=== PATIENT | female | born 1975 | race Caucasian/White ===

== ENCOUNTER 2017-03-23 06:39 | Emergency (ER) | payer SELFPAY ==
[~2017-03-23] VITALS: Ht 162.6 cm; Wt 118.2 kg
[2017-03-23 06:42] VITALS: TEMP 98.5
[2017-03-23] MEDS ORDERED: DEPAKOTE ER 50500 MG PO (06:45)
[2017-03-23] MEDS ORDERED: LITHIUM 30300 MG/CAP PO (06:45)
[2017-03-23] MEDS ORDERED: GLUCOPHAGE1000 MG PO (06:45)
[2017-03-23 07:43] VITALS: BP 138/89; PULSE 72
== END 2017-03-23 07:43 | disposition home or self-care (01) ==
LOC: COL.ER 06:39
DX: S93.402A Sprain of unspecified ligament of left ankle, initial encounter (principal); X50.1XXA Overexertion from prolonged static or awkward postures, initial encounter; E11.9 Type 2 diabetes mellitus without complications; Z79.84 Long term (current) use of oral hypoglycemic drugs

== ENCOUNTER 2017-04-15 15:15 | Emergency (ER) | payer OTHER ==
[~2017-04-15] VITALS: Ht 162.6 cm; Wt 121.4 kg
[~2017-04-15 15:15] MED LIST: DEPAKOTE ER 50500 MG PO; GLUCOPHAGE1000 MG PO; LITHIUM 30300 MG/CAP PO
[2017-04-15 15:21] VITALS: BP 132/80; TEMP 99.9
[2017-04-15] MEDS ORDERED: DEPAKOTE ER 50500 MG PO (15:59)
[2017-04-15 16:26] VITALS: PULSE 86
== END 2017-04-15 16:27 | disposition home or self-care (01) ==
LOC: COL.ER 15:15
DX: R45.1 Restlessness and agitation (principal); F31.9 Bipolar disorder, unspecified; Z76.0 Encounter for issue of repeat prescription

== ENCOUNTER 2017-04-20 03:08 | Emergency (ER) | payer SELFPAY ==
[~2017-04-20] VITALS: Ht 162.6 cm; Wt 121.4 kg
[2017-04-20 03:12] VITALS: TEMP 97.5
[2017-04-20 03:31] VITALS: BP 132/93
[2017-04-20 04:00] VITALS: PULSE 80
== END 2017-04-20 04:00 | disposition home or self-care (01) ==
LOC: COL.ER 03:08
DX: F44.9 Dissociative and conversion disorder, unspecified (principal); F31.9 Bipolar disorder, unspecified; F98.5 Adult onset fluency disorder

== ENCOUNTER 2017-04-20 08:35 | Emergency (ER) | payer SELFPAY ==
[~2017-04-20] VITALS: Ht 162.6 cm; Wt 121.4 kg
[2017-04-20 08:39] VITALS: BP 139/89; PULSE 78
== END 2017-04-20 08:50 | disposition left against medical advice (07) ==
LOC: COL.ER 08:35
DX: M25.572 Pain in left ankle and joints of left foot (principal); Z53.21 Procedure and treatment not carried out due to patient leaving prior to being seen by health care provider

== ENCOUNTER 2017-04-20 09:19 | Observation (INO) | payer OTHER ==
[~2017-04-20] VITALS: Ht 162.6 cm; Wt 121.4 kg
[2017-04-20 09:22] VITALS: TEMP 98.9
[2017-04-20 10:07] LABS: COLLECTION METHOD CLEAN CATCH
[2017-04-20 10:11] LABS: URINE APPEARANCE Clear; URINE COLOR Yellow
[2017-04-20 10:12] LABS: PH 6 (5-8); URINE BILIRUBIN Negative (NEGATIVE); URINE BLOOD Negative (NEGATIVE); URINE GLUCOSE Negative (NEGATIVE); URINE KETONE Trace (NEGATIVE); URINE LEUKOCYTE ESTERASE Negative (NEGATIVE); URINE PROTEIN(semi-quant) Negative (NEGATIVE); URINE UROBILINOGEN Negative (NEGATIVE)
[2017-04-20 10:15] LABS: MUCOUS Present /lpf; SQUAMOUS EPITHELIAL 0-2 /hpf; URINE BACTERIA None Seen /hpf; URINE RBC 0-2 /hpf; URINE WBC 0-2 /hpf
[2017-04-20 10:22] LABS: AMPHETAMINE URINE NEGATIVE; BARBITURATES URINE NEGATIVE; BENZODIAZEPINES URINE NEGATIVE; BUPRENORPHINE URINE NEGATIVE; METHADONE URINE NEGATIVE; OPIATES URINE NEGATIVE; OXYCODONE URINE NEGATIVE; PHENCYCLIDINE URINE NEGATIVE; PROPOXYPHENE URINE NEGATIVE; THC CANNABINOIDS URINE NEGATIVE; TRICYCLIC ANTIDEPRESS URINE NEGATIVE
[2017-04-20 10:34] LABS: BASO # 0.1 (0.0-0.2); BASO % 1.1 % (0.0-2.0); EOS # 0.1 (0.0-0.7); GRAN % 59.4 % (42.2-75.2); LYMPH # 2.9 (1.2-3.4); LYMPH % 24.9 % (20.0-51.0); MEAN CELL VOLUME 89 fl (80.0-100.0); MEAN CORPUSCULAR HGB CONC 30 g/dl (33.0-37.0); MEAN PLATELET VOLUME 10.9 fl (7.4-10.4); MONO # 1.5 (0.1-0.6); MONO % 12.4 % (1.7-9.3); PLATELET COUNT 326 K/mm3 (130-400); RED BLOOD COUNT 4.13 M/mm3 (4.10-5.30); WHITE BLOOD COUNT 11.7 K/mm3 (4.8-10.8)
[2017-04-20 10:35] LABS: HEMATOCRIT 36.9 % (37.0-47.0); HEMOGLOBIN 11.2 g/dl (12.5-16.0); MEAN CORPUSCULAR HEMOGLOBIN 27 pg (27.0-31.0)
[2017-04-20 10:38] LABS: ALBUMIN 4.6 gm/dL (3.5-5.0); BILIRUBIN,TOTAL 0.9 mg/dL (0.0-1.0); CALCIUM 10.5 mg/dL (8.4-10.2); CREATININE, serum 0.79 mg/dL (0.52-1.25); POTASSIUM 4.4 mmol/L (3.4-5.0)
[2017-04-20 11:08] LABS: TSH w REFLEX 3.74 uIU/mL (0.465-4.680)
[2017-04-20 16:19] VITALS: BP 112/63; PULSE 77
[2017-04-20 17:25] LABS: LITHIUM 0.9 mmol/L (0.6-1.2)
== END 2017-04-22 14:20 ==
LOC: COL.ER 09:19 → ICU 15:25 → COL.ER 15:25 → ICU 04-22 14:20
PROVIDERS: Emergency Medicine
DX: F29 Unspecified psychosis not due to a substance or known physiological condition (principal)
CPT/HCPCS: 90791-AI; G0378; J2060

== ENCOUNTER 2017-05-09 14:30 | Emergency (ER) | payer SELFPAY ==
[~2017-05-09] VITALS: Ht 162.6 cm; Wt 100.0 kg
[~2017-05-09 14:30] MED LIST changes: -GLUCOPHAGE500 MG/TAB; -SEROQUEL50 MG PO
[2017-05-09 14:31] VITALS: BP 134/77; PULSE 86; TEMP 99.2
[2017-05-09] MEDS ORDERED: SEROQUEL50 MG PO (15:16)
== END 2017-05-09 14:43 | disposition left against medical advice (07) ==
LOC: COL.ER 14:30
DX: R51 Headache (principal); Z53.21 Procedure and treatment not carried out due to patient leaving prior to being seen by health care provider

== ENCOUNTER → 2017-05-09 | Emergency (ER) | payer SELFPAY ==
[~2017-05-09] VITALS: Ht 162.6 cm; Wt 115.9 kg
[~2017-05-09] MED LIST changes: +GLUCOPHAGE500 MG/TAB; +SEROQUEL50 MG PO
[2017-05-09 15:12] VITALS: BP 134/74; PULSE 84; TEMP 98
== END ==
LOC: COL.ER 15:10
DX: M79.672 Pain in left foot (principal)

== ENCOUNTER 2017-05-10 12:43 | Observation (INO) | payer SELFPAY ==
[~2017-05-10] VITALS: Ht 162.6 cm; Wt 113.1 kg
[~2017-05-10 12:43] MED LIST changes: +SEROQUEL50 MG PO
[2017-05-10 14:39] LABS: MEAN CELL VOLUME 90 fl (80.0-100.0); MEAN CORPUSCULAR HGB CONC 31 g/dl (33.0-37.0); PLATELET COUNT 296 K/mm3 (130-400); RED BLOOD COUNT 3.89 M/mm3 (4.10-5.30); REDCELL DISTRIBUTION WIDTH-CV 17.3 % (11.5-14.5); WHITE BLOOD COUNT 9.1 K/mm3 (4.8-10.8)
[2017-05-10 14:42] LABS: ADD PATHOLOGY DIFF REVIEW NO; HEMATOCRIT 35.1 % (37.0-47.0); HEMOGLOBIN 10.7 g/dl (12.5-16.0); MEAN CORPUSCULAR HEMOGLOBIN 28 pg (27.0-31.0)
[2017-05-10 14:51] LABS: ADJUSTED CALCIUM 9.2 mg/dL (8.4-10.2); ALANINE AMINOTRANSFERASE 25 U/L (9-52); ALBUMIN 4.4 gm/dL (3.5-5.0); ALKALINE PHOSPHATASE 70 U/L (50-136); ANION GAP 11 mmol/L (7-16); BILIRUBIN,TOTAL 0.8 mg/dL (0.0-1.0); BLOOD UREA NITROGEN 18 mg/dL (7-17); CALCIUM 9.5 mg/dL (8.4-10.2); CARBON DIOXIDE 24 mmol/L (22-30); CHLORIDE 103 mmol/L (98-107); CREATININE, serum 0.77 mg/dL (0.52-1.25); GLUCOSE 162 mg/dL (74-106); POTASSIUM 3.8 mmol/L (3.4-5.0); SODIUM 138 mmol/L (137-145); TOTAL PROTEIN 7.8 gm/dL (6.4-8.2)
[2017-05-10 15:20] LABS: BAND 10 % (0-10); BASOPHIL 3 % (0-2); NEUTROPHILS 54 % (42.0-75.2); TOTAL CELLS COUNTED 100
[2017-05-10 17:11] LABS: ACETAMINOPHEN < 10 ug/mL (10-30); SALICYLATE < 1.0 mg/dL
[2017-05-10 19:22] LABS: PH 5 (5-8); URINE APPEARANCE Cloudy; URINE BACTERIA None Seen /hpf; URINE BILIRUBIN Negative (NEGATIVE); URINE BLOOD 1+ (NEGATIVE); URINE COLOR Yellow; URINE GLUCOSE 1+ (NEGATIVE); URINE KETONE Trace (NEGATIVE); URINE RBC 0-2 /hpf; URINE UROBILINOGEN Negative (NEGATIVE); URINE WBC 0-2 /hpf
[2017-05-10 19:44] LABS: AMPHETAMINE URINE NEGATIVE; BARBITURATES URINE NEGATIVE; BENZODIAZEPINES URINE NEGATIVE; BUPRENORPHINE URINE NEGATIVE; METHADONE URINE NEGATIVE; OPIATES URINE NEGATIVE; OXYCODONE URINE NEGATIVE; PHENCYCLIDINE URINE NEGATIVE; PROPOXYPHENE URINE NEGATIVE; THC CANNABINOIDS URINE NEGATIVE
[2017-05-11] MEDS ORDERED: GLUCOPHAGE500 MG/TAB (12:29)
[2017-05-11 21:00] VITALS: BP 84/51; PULSE 63; TEMP 98.9
== END 2017-05-12 16:00 ==
LOC: COL.ER 12:43 → ICU 05-11 11:45
PROVIDERS: Emergency Medicine
DX: F22 Delusional disorders (principal)
CPT/HCPCS: G0378